=== PATIENT | male | born 1995 | race Caucasian/White ===

== ENCOUNTER 2017-05-16 01:51 | Emergency (ER) | payer BC ==
[~2017-05-16] VITALS: Ht 182.9 cm; Wt 100.0 kg
[2017-05-16 01:58] VITALS: TEMP 36.9; Ht 182.9 cm; Wt 100.0 kg
[2017-05-16] MEDS ORDERED: ONDANSETRON 4MG OD TAB PO ONE (02:30)
[2017-05-16] MEDS ORDERED: ONDANSETRON HOME PACK 4MG OD TAB PO ONE (02:30)
[2017-05-16 03:22] VITALS: BP 134/79; PULSE 84; O2SAT 98
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
--- NOTE | 2017-05-16 07:08 | DIAGNOSTIC IMAGING REPORT ---
HEAD CT NONCONTRAST CT DOSE: HISTORY: head/facial injury/ETOH TECHNIQUE: Multiaxial CT images of the head were performed without the use of intravenous contrast. Automated exposure control was utilized for this study. A dose lowering technique was utilized adhering to the principles of ALARA. Comparison: None. Findings: The paranasal sinuses are clear. Trace fluid within the right mastoid air cells. The calvarium and skull base are intact. The ventricles and sulci are within normal limits. There is no mass, hematoma, midline shift, or acute infarct. Impression: No acute intracranial abnormality. Electronically signed by: Sherwin Pop M.D. 05/16/2017 7:07 AM Dictated Date/Time: 05/16/2017 7:04 AM
--- NOTE | 2017-05-16 07:16 | DIAGNOSTIC IMAGING REPORT ---
FACIAL BONES-MXILLOFAC WITHOUT CLINICAL HISTORY: 22 years-old Male presenting with head/facial injury/ETOH. TECHNIQUE: Multidetector CT of the face was performed without the use of intravenous contrast. IV contrast: None. A dose lowering technique was used consistent with the principles of ALARA (as low as reasonably achievable). COMPARISON: None. CT DOSE (mGy.cm): The estimated cumulative dose is 838.00 mGy.cm. FINDINGS: Talent Development Manager topogram: Unremarkable. Soft tissue in the bilateral external auditory canals along the tympanic membranes may represent cerumen. Trace fluid in the right mastoid air cells. Trace mucosal thickening in ethmoid air cells. No evidence of a skull base fracture. Mild deviation of the bony nasal septum to the left. No acute fracture. Orbits intact. Superficial soft tissues of the face demonstrate mild focal infiltration and swelling of the right paramedian frontal region. Upper cervical spine normal. IMPRESSION: 1. Minimal focal subcutaneous contusion at the right paramedian forehead. 2. No acute osseous injury. Electronically signed by: Don Langley M.D. 05/16/2017 7:15 AM Dictated Date/Time: 05/16/2017 7:12 AM
== END 2017-05-16 03:23 | disposition home or self-care (01) ==
LOC: C.EDB 01:52
DX: S09.90XA Unspecified injury of head, initial encounter (principal); W50.0XXA Accidental hit or strike by another person, initial encounter; Y93.83 Activity, rough housing and horseplay